=== PATIENT | male | born 1960 | race African-American/Black ===

== ENCOUNTER 2016-09-11 09:06 | Outpatient (CLI) | payer OTHER ==
[2016-09-11 09:25] LABS: BASOPHILS # (AUTO) 0.1 X10^3/uL (0.0-0.1); EOSINOPHILS # (AUTO) 0.1 x10^3/uL (0.0-0.2); EOSINOPHILS % (AUTO) 1.9 % (0.9-2.9); HEMOGLOBIN 13.7 g/dL (13.5-18.0); LYMPHOCYTES # (AUTO) 2.2 X10^3/uL (1.3-2.9); LYMPHOCYTES % (AUTO) 32.5 % (21.0-51.0); MEAN CORPUSCULAR HEMOGLOBIN 20.7 pg (27.0-34.0); MEAN CORPUSCULAR HGB CONC 31.7 g/dL (33.0-35.0); MEAN CORPUSCULAR VOLUME 65.2 fL (80.0-100.0); MEAN PLATELET VOLUME 8.6 fL (7.4-11.0); MONOCYTES # (AUTO) 0.5 x10^3/uL (0.3-0.8); MONOCYTES % (AUTO) 7.5 % (0.0-13.0); NEUTROPHILS # (AUTO) 3.8 x10^3/uL (2.2-4.8); NEUTROPHILS % (AUTO) 57.1 % (42.0-75.0); PLATELET COUNT 140 X10^3/uL (150.0-450.0); RED CELL DISTRIBUTION WIDTH 16.1 % (11.6-16.5); WHITE BLOOD COUNT 6.7 X10^3/uL (3.6-10.0)
[2016-09-11 09:38] LABS: ALANINE AMINOTRANSFERASE 52 Units/L (12-78); ALBUMIN 3.9 g/dL (3.4-5.0); ALKALINE PHOSPHATASE 55 Units/L (46-116); ASPARTATE AMINO TRANSFERASE 32 Units/L (15-37); BLOOD UREA NITROGEN 12 mg/dL (7-18); CALCIUM 8.9 mg/dL (8.5-10.1); CARBON DIOXIDE 25.3 mmol/L (21-32); CHLORIDE 108 mmol/L (98-107); CREATININE 1.15 mg/dL (0.70-1.30); GLUCOSE 100 mg/dL (65-99); SODIUM 144 mmol/L (136-145); TOTAL PROTEIN 7.6 g/dL (6.4-8.2); eGFR BLACK RACES > 60 (>60); eGFR NON BLACK RACES > 60 (>60)
[2016-09-11 09:45] LABS: HYPOCHROMASIA 2+; MICROCYTOSIS 1+; PLATELET MORPHOLOGY COMMENT NORMAL (NORMAL)
[2016-09-11] MEDS ORDERED: FENTANYL INJ 100 mcg ONE (10:28)
[2016-09-11] MEDS ORDERED: NS 500 ML IV 500 ML IV ONE (10:47)
[2016-09-11] MEDS ORDERED: XYLOCAINE 1 % (PLAIN) ONE (10:54)
[2016-09-11 14:07] VITALS: BP 137/80
[2016-09-11] MEDS ORDERED: VERSED ONE (15:38)
--- NOTE | 2016-09-12 11:33 | CT ---
HISTORY: Chronic Hep C CT guided liver biopsy. Technique: Multiple axial images of the abdomen were obtained without the administration of IV contr ast for CT fluoroscopic guidance of trocar placement. Findings: Procedure note: After the risks benefits and alternatives to the procedure were explained to the patient all questio ns were answered and the patient agreed to proceed. Under CT guidance the skin entry position was s elected and marked. Skin was then prepped and draped in normal sterile fashion. A timeout was take n. 1% lidocaine without epinephrine was utilized to anesthetize the skin and underlying soft tissue s. Conscious sedation was titrated by anesthesia. A 19-gauge trocar device was advanced approximat ana rosa 1.5 cm into the liver without difficulty. 5 separate 20-gauge samples were obtained and placed in pathological medium for analysis. The needle was withdrawn and the patient left the department i n stable and unchanged condition. The preprocedural and postprocedural imaging demonstrates an approximate 8 mm pulmonary nodule withi n the subpleural left lower lobe on axial image 4 of series 3. The liver demonstrates o a small hypo attenuating lesion within the periphery of the medial hepatic segment on image 35 which is nonspecif ic. No other hepatic lesion. The morphology of the liver is within normal limits. Left kidney contai ns a punctate nonobstructing stones within the lower pole. No other acute inflammatory process or ab normal finding was visualized. IMPRESSION: Successful CT-guided liver biopsy with 5 core biopsy samples obtained. The patient tolerated the pro cedure without procedural or immediate postprocedural complication identified. An approximate 8mm subpleural left lower pulmonary nodule is indeterminate, further evaluation with contrast enhanced chest CT is recommended. Reported By:
== END 2016-09-11 13:33 | disposition home or self-care (01) | DRG 443 ==
LOC: RAD 09:06
PROVIDERS: ATTEND Internal Medicine Gastroenterology
PROC: 0FB03ZX Excision of Liver, Percutaneous Approach, Diagnostic (ICD-10-PCS; principal; 2016-09-11)
DX: B18.2 Chronic viral hepatitis C (principal); K72.90 Hepatic failure, unspecified without coma; K75.89 Other specified inflammatory liver diseases
CPT/HCPCS: 36415; 77012; 80053; 85025; 85610; 85730; A4222; J2001; J2250; J3010

== ENCOUNTER → 2016-09-20 | Outpatient (CLI) | payer OTHER ==
[2016-09-11 14:07] VITALS: BP 137/80
[~2016-09-20] MED LIST: NS 100 ML IV 100 ML IV ONE
--- NOTE | 2016-09-20 11:50 | CT ---
HISTORY: Follow up pulmonary nodule Study: CT chest with contrast Comparison: Abdominal CT September 11, 2016 Technique: Axial post-contrast images with coronal and sagittal reformats. Dose reduction procedures were used with MA/kv adjusted for body size. Findings: Examination of the mediastinum demonstrated no evidence for enlarged mediastinal or enlarged hilar a denopathy. Nonenlarged mediastinal nodes are present. No pleural effusions are identified. No chest wall or axillary abnormality is identified. Those portions of the upper abdominal organs visualized were within normal limits. Examination of the lung amaya demonstrated minimal bibasilar subsegmenta l atelectasis to be present. There is an 8.9 millimeter left lower lobe pulmonary nodule correspondi ng to the lesion noted on the prior CT. This is best visualized on axial image 32 of series 5. This appears to represent a solitary pulmonary nodule as no other nodules are identified. Further evaluat ion with PET-CT is recommended in order to exclude neoplasm. A negative PET-CT will require CT follo w up, however. No areas of consolidation peribronchial thickening, or bronchiectasis is identified. IMPRESSION: 8.9 millimeter left lower lobe pulmonary nodule for which further evaluation with PET-CT is recommen ded. Reported By:
== END ==
LOC: RAD 08:54
PROVIDERS: ATTEND Internal Medicine Gastroenterology
DX: R91.1 Solitary pulmonary nodule (principal)
CPT/HCPCS: 71260; A4222

== ENCOUNTER → 2016-11-19 | Outpatient (CLI) | payer OTHER ==
[2016-11-25 06:29] LABS: HCV VIRAL LOG <1.2 log IU
== END ==
LOC: LAB 15:38
PROVIDERS: ATTEND Internal Medicine Gastroenterology
DX: B18.2 Chronic viral hepatitis C (principal)
CPT/HCPCS: 36415; 87522